=== PATIENT | male | born 1960 | race Caucasian/White ===

== ENCOUNTER 2024-03-26 19:59 | Emergency (ER) | payer OTHER, SELFPAY ==
[2024-03-26 20:00] VITALS: BP 201/111; PULSE 64; TEMP 37.1; O2SAT 97; BMI 25.8
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
[2024-03-26 20:42] LABS: Basophils Absolute Auto 0.1 10^3/uL (0.0-0.1); Basophils Percent Auto 0.7 % (0.2-2.0); Eosinophils Absolute Auto 0.2 10^3/uL (0.0-0.7); Eosinophils Percent Auto 2.9 % (0.9-7.0); Hematocrit 44.2 % (42.0-54.0); Hemoglobin 15.3 g/dL (14.0-18.0); Immature Granulocytes Abs Auto 0.02 10^3/uL (0.00-0.03); Immature Granulocytes Pct Auto 0.3 % (0.0-0.5); Lymphocytes Absolute Auto 1.9 10^3/uL (1.2-3.8); Lymphocytes Percent Auto 25.4 % (20.5-60.0); Mean Corpuscular HGB Conc 34.6 g/dL (29.9-35.2); Mean Corpuscular Hemoglobin 32.5 pg (25.9-34.0); Mean Corpuscular Volume 93.8 fL (80.0-94.0); Mean Platelet Volume 11.3 fL (9.5-13.5); Monocytes Absolute Auto 0.6 10^3/uL (0.3-0.8); Monocytes Percent Auto 7.6 % (1.7-12.0); Neutrophils Absolute Auto 4.6 10^3/uL (1.4-6.5); Neutrophils Percent Auto 63.1 % (43.0-75.0); Platelet Count 164 10^3/uL (150-450); Red Blood Count 4.71 10^6/uL (4.70-6.10); Red Cell Distribution Width 13.3 % (11.0-15.0); White Blood Count 7.3 10^3/uL (4.0-11.0)
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
[2024-03-26 21:00] LABS: Alanine Aminotransferase 25 U/L (16-63); Albumin Level 3.9 g/dL (3.4-5.0); Alkaline Phosphatase 117 U/L (46-116); Anion Gap 11.3; Aspartate Amino Transferase 25 U/L (15-37); BUN Creatinine Ratio 11.6; Bilirubin Total 0.6 mg/dL (0.2-1.0); Calcium 9.3 mg/dL (8.5-10.1); Carbon Dioxide 28.4 mmol/L (21.0-32.0); Chloride 105 mmol/L (98-107); Estimated GFR (African America >60 (>=60 mL/min/1.73m^2); Estimated GFR (Non-African Ame >60 (>=60 mL/min/1.73m^2); Globulin 3.8 g/dL; Glucose 92 mg/dL (74-106); Potassium 3.7 mmol/L (3.5-5.1); Sodium 141 mmol/L (136-145); Total Protein 7.7 g/dL (6.4-8.2); Troponin I High Sensitivity 11.5 pg/mL (4.0-76.1)
[2024-03-26 21:09] VITALS: BP 222/98
[2024-03-26 21:15] LABS: Bilirubin Urine NEGATIVE (NEGATIVE); Blood Urine NEGATIVE (NEGATIVE); Clarity Urine CLEAR (CLEAR); Color Urine LT. YELLOW (YELLOW); Glucose Urine UA NEGATIVE (NEGATIVE); Ketones Urine NEGATIVE (NEGATIVE); Leukocyte Esterase Urine NEGATIVE (NEGATIVE); Nitrite Urine NEGATIVE (NEGATIVE); Protein Urine NEGATIVE (NEG/TRACE); Urobilinogen Urine 0.2 EU/dL (0.2-1.0)
[2024-03-26 21:17] LABS: Urine Microscopic Indicated NO
[2024-03-26 21:18] VITALS: BP 205/110
[2024-03-26] MEDS: CLONIDINE HCL 0.1 MG TABLET 0.2 MG PO (21:18)
[2024-03-26 21:35] VITALS: BP 205/110
[2024-03-26] MEDS: HYDRALAZINE HCL 20 MG/ML VIAL 10 MG IVP (21:53)
[2024-03-26 21:54] VITALS: BP 200/102
[2024-03-26 23:17] VITALS: BP 138/88
[2024-03-26] MEDS: HYDROMORPHONE HCL 0.5 MG/0.5 ML SYRINGE IV (23:36)
[2024-03-27] MEDS: HYDROMORPHONE HCL 1 MG/ML CARTRIDGE IV (00:48)
[2024-03-27 00:57] VITALS: BP 136/77; PULSE 50; O2SAT 97
== END 2024-03-27 01:01 | disposition home or self-care (01) ==
PROVIDERS: Emergency Provider Internal Medicine
DX: S22.32XA Fracture of one rib, left side, initial encounter for closed fracture (principal); S30.1XXA Contusion of abdominal wall, initial encounter; V63.5XXA Driver of heavy transport vehicle injured in collision with car, pick-up truck or van in traffic accident, initial encounter; R91.8 Other nonspecific abnormal finding of lung field; F17.210 Nicotine dependence, cigarettes, uncomplicated; M47.812 Spondylosis without myelopathy or radiculopathy, cervical region
CPT/HCPCS: 36415; 70450; 71260; 72125; 74177; 80053; 81003; 83605; 84484; 85025; 96374; 96375; 96376; 99285; J0360; J1171; Q9967